=== PATIENT | female | born 2000 ===

== ENCOUNTER 2023-03-22 12:35 | Emergency (ER) | payer OTHER, SELFPAY ==
[2023-03-22 12:40] VITALS: BP 132/93; PULSE 125; RESP 16; TEMP 37.1; O2SAT 99
[2023-03-22 13:50] LABS: Appearance Urine Clear (Clear); Bacteria Urine None Seen /hpf; Bilirubin Urine Negative (Negative); Blood Urine 3+ (Negative); Color Urine Yellow (Yellow); Glucose Urine UA Negative (Negative); Ketones Urine Negative (Negative); Leukocyte Esterase Ur 3+ LEU/UL (Negative); Nitrate Urine Negative (Negative); Non Pathogenic Casts 0-2; Protein Urine Trace mg/dL (Negative); Specific Grav Ur 1.008 (1.001-1.035); Squamous Epithelial Cell Urine Occasional /hpf (Few); WBC Urine 21-50 /hpf
[2023-03-22 13:56] LABS: Influenza A QL RT-PCR Negative (Negative); Influenza B QL RT-PCR Negative (Negative); RSV RNA, RT-PCR Negative (Negative); SARS-CoV-2 RNA PCR Negative (Negative)
[2023-03-22 13:58] LABS: Add Urine Microscopic? YES; Pregnancy On Board Control Positive; Urine Pregnancy Test Negative
[2023-03-22] MEDS: KETOROLAC 30 MG/ML VIAL (*BKC) IM (14:28)
--- NOTE | 2023-03-22 14:29 | ED.FEMALEGU ---
HPI - Female Genitourinary General Chief complaint: Urogenital-Female Stated complaint: Headache/UTI Time Seen by Provider: 03/22/23 12:42 History of Present Illness HPI Narrative: 22-year-old female presented to ED for evaluation of intermittent tension headache. Patient states headache has been ongoing for the last few days. Patient did take ibuprofen for pain control along with Tylenol with some control. Patient is also currently on antibiotics for urinary tract infection and will be on Macrobid until Thursday. Patient denies any current urinary symptoms. Related Data Allergies Allergy/AdvReac Type Severity Reaction Status Date / Time amoxicillin Allergy Mild hives Verified 02/10/23 08:54 Review of Systems Review of Systems: All systems reviewed & are unremarkable except as noted in HPI and below PMFSH Family History Family History Other Diabetes mellitus Hypertension Social History Social History (Updated 02/10/23 @ 08:56 by Varsha Nguyen MA) Smoking status: Never smoker Alcohol intake: current Substance use: never Substance use type: does not use Lack of Transportation: No Lack of Food: Never True Current Housing: I Have Housing Concerned About Future Housing: No Difficulty Paying Gas/Electric Bills: No Difficulty Paying for Meds: No Currently Unemployed: No Education: Master's Degree or Higher Difficulty w/ Childcare or Family Care: No Living arrangements: with family Occupation/Education: occupation 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 HEAD: normocephalic, atraumatic. EYES: PERRLA/EOMI, conjunctivae clear. NOSE: Normal no drainage NECK: Supple. No adenopathy, no masses. RESPIRATORY: Airway patent, respirations nonlabored. Clear to auscultation bilaterally, no rales, rhonchi, wheezing. CARDIOVASCULAR: Regular rate and rhythm without murmurs rubs or gallops. ABDOMINAL: Soft, nontender, nondistended, normal bowel sounds MUSCULOSKELETAL: Moves all extremities. Strength/ROM intact, No edema, No calf tenderness. NEURO: Alert. Cranial nerves II through XII intact. Course Course Emergency Course: 22-year-old female presented the ED for evaluation of headache. Patient was treated with IM Toradol and does feel improved. Patient denies any urinary symptoms currently on Macrobid. Patient did have leuk esterase RBCs and white blood cells but is still on the antibiotics, urine culture is pending. On reevaluation patient does feel improved. Patient was comfortable with plan for discharge and close follow-up. All questions concerns were addressed. Vital Signs Vital signs: Vital Signs Temperature 98.8 F 03/22/23 12:40 Pulse Rate 125 H 03/22/23 12:40 Respiratory Rate 16 03/22/23 12:40 Blood Pressure 132/93 H 03/22/23 12:40 Pulse Oximetry 99 03/22/23 12:40 Oxygen Delivery Room Air 03/22/23 12:40 Temperature 98.8 F 03/22/23 12:40 Pulse Rate 98 03/22/23 15:38 Respiratory Rate 18 03/22/23 15:38 Blood Pressure 136/88 03/22/23 15:38 Pulse Oximetry 98 03/22/23 15:38 Oxygen Delivery Room Air 03/22/23 12:40 MDM - Female Genitourinary Differential Diagnosis Differential diagnosis: Likely urinary tract infection Lab Data Attestation: I reviewed the patient's lab results. Labs: Lab Results 03/22/23 03/22/23 Range/Units 13:03 13:37 Urine Color Yellow (Yellow) Urine Appearance Clear (Clear) Urine pH 7.0 (5.0-9.0) Ur Specific [place] 1.008 (1.001-1.035) Urine Protein Trace (Negative) mg/dL Urine Glucose (UA) Negative (Negative) mg/dL Urine Ketones Negative (Negative) mg/dL Ur Blood (Man) 3+ H (Negative)
[2023-03-22 15:38] VITALS: BP 136/88; PULSE 98; RESP 18; O2SAT 98
== END 2023-03-22 15:40 | disposition home or self-care (01) ==
PROVIDERS: Emergency Provider Emergency Medicine
DX: N39.0 Urinary tract infection, site not specified (principal); R51.9 Headache, unspecified; Z20.822 Contact with and (suspected) exposure to COVID-19
CPT/HCPCS: 81001; 81025; 87086; 87088; 87637; 96372; 99283; J1885

== ENCOUNTER 2023-03-23 17:44 | Emergency (ER) | payer OTHER, SELFPAY ==
--- NOTE | ~2023-03-23 | CT_ITS ---
EXAMINATION: CT brain wo con DATE: 03/23/2023 22:11 INDICATION: acute headache . TECHNIQUE: Computed tomography (CT) of the head was performed without intravenous contrast. The mA wa s adjusted according to patient size. Iterative reconstruction technique was employed. The dose-lengt h product was 605.33 mGy-cm. COMPARISON: None. FINDINGS: No acute intracranial hemorrhage or extra-axial fluid collection. No hydrocephalus, mass, or herniation. No acute ischemic infarct. Unremarkable dural venous sinus attenuation. No acute osseous abnormality. Frontal scalp sebaceous cyst. The aerated spaces are clear. IMPRESSION: No acute intracranial process. Reviewed, dictated and finalized at location K.
[2023-03-23 17:54] VITALS: BP 119/76; PULSE 122; RESP 20; TEMP 37.1; O2SAT 98
[2023-03-23] MEDS: SODIUM CHLORIDE 0.9% IV 1,000 ML 999 ML IV CONT ×2 (20:01→20:55)
[2023-03-23] MEDS: KETOROLAC 15 MG/ML VIAL (*BKC) IV PUSH ×2 (20:02→22:34)
[2023-03-23 20:04] LABS: Lactic Acid Reflex 1.2 mmol/L (0.7-2.0)
[2023-03-23 20:11] LABS: Alanine Aminotransferase 175 U/L (6-35); Albumin Level 3.6 g/dL (3.5-5.1); Alkaline Phosphatase 90 U/L (38-126); Anion Gap 1 mmol/L (8-16); Aspartate Amino Transferase 210 U/L (14-36); Bilirubin,Total 1.2 mg/dL (0.2-1.3); Blood Urea Nitrogen 10 mg/dL (7-17); Calcium 8.4 mg/dL (8.4-10.2); Carbon Dioxide 27 mmol/L (22-30); Chloride 102 mmol/L (98-107); Estimated CRCL calculation 113 ml/min; Estimated Glomerular Filt Rate > 60; Glucose 105 mg/dL (65-110); Lipase 77 U/L (23-300); Potassium 4.1 mmol/L (3.4-5.0); Sodium 130 mmol/L (137-145)
[2023-03-23] MEDS: PROCHLORPERAZINE EDISYLATE 10 MG/2 ML VIAL IV PUSH (20:23)
--- NOTE | 2023-03-23 20:27 | ED.GENADULT ---
HPI - General Adult General Chief complaint: Headache Stated complaint: headaches/nausea Time Seen by Provider: 03/23/23 19:01 Source: patient, RN notes reviewed and old records reviewed Mode of arrival: ambulatory Limitations: no limitations History of Present Illness HPI narrative: This is a 22 year old female who presents for evaluation of headache. Patient states she has had intermittent headache for 8 days. She describes headache as dull frontal with occasional throbbing. She is intermittently taking Tylenol for her pain. She reports nausea but no vomiting. She states she had fever on but this was after headache started and she has not had fever since Thursday. She also reports intermittent abdominal pain. She is currently on antibiotics for a UTI. She states she went to urgent care for assessment of her headache and she was started on medication for UTI. She denies having dysuria, gross hematuria or urinary hesitancy. She did note her urine looked like apple juice at that time but it has since resolved. She reports headache is 7/10 currently. She has not taken any medication today for her symptoms. She was evaluated in ER yesterday and treated for headache. Headache improved but they have returned to ER because she is still getting headaches. She denies focal weakness, blurred vision Related Data Allergies Allergy/AdvReac Type Severity Reaction Status Date / Time amoxicillin Allergy Mild hives Verified 02/10/23 08:54 gentamicin Allergy Unknown Verified 03/23/23 20:33 Review of Systems Constitutional: Constitutional: Denies weakness Eyes: Eyes: Denies change in vision and Denies photophobia Cardiovascular: Cardiovascular: Denies syncope, Denies rapid heart rate, Denies irregular heart rhythm, Denies leg edema and Denies dyspnea Respiratory: Respiratory: Denies chest congestion, Denies hemoptysis, Denies excessive phlegm production and Denies dyspnea Gastrointestinal: Gastrointestinal: Denies abdominal pain, Denies hematochezia, Denies diarrhea, Reports nausea and Denies vomiting Genitourinary: Genitourinary: Denies hematuria, Denies nocturia and Denies dysuria Musculoskeletal: Musculoskeletal: Denies joint swelling, Denies loss of height and Denies muscle weakness Neurologic: Denies syncope, Reports headache(s), Denies focal weakness and Denies weakness [facility] Family History Family History Other Diabetes mellitus Hypertension Social History Social History (Updated 02/10/23 @ 08:56 by Varsha Nguyen MA) Smoking status: Never smoker Alcohol intake: current Substance use: never Substance use type: does not use Lack of Transportation: No Lack of Food: Never True Current Housing: I Have Housing Concerned About Future Housing: No Difficulty Paying Gas/Electric Bills: No Difficulty Paying for Meds: No Currently Unemployed: No Education: Master's Degree or Higher Difficulty w/ Childcare or Family Care: No Living arrangements: with family Occupation/Education: occupation 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 Gender identity (if verbalized by the patient): Female Sexual Orientation (if Verbalized by the Patient): Straight or Heterosexual Exam Const: General: no acute distress and alert Nutritional Appearance: well nourished Orientation/consciousness: patient oriented x3 HENMT: Head: normal to inspection Ears: external ears normal and TM's normal bilaterally Face/Nose/Sinus: Normal external nose present Face and sinus: normal facial exam and sinuses nontender Mouth: Yes Normal oral and palatal mucosa present, Yes lip normal and Yes moist mucous membranes Throat: posterior oropharynx normal and uvula midline Eyes: Conjunctivae: conjunctivae normal Pupils: Equal, round and reactive pupils present EOM: EOMs intact bilaterally Neck: Neck: normal visual inspection and no lymphadenopathy Chest:
[2023-03-23 20:31] LABS: Influenza A QL RT-PCR Negative (Negative); Influenza B QL RT-PCR Negative (Negative); SARS-CoV-2 RNA PCR Negative (Negative)
[2023-03-23 20:39] LABS: Hemoglobin 10.9 g/dL (12.0-15.0); Mean Corpuscular Hemoglobin 28.2 pg (26-34); Mean Corpuscular Volume 85.3 fl (80-100); Mean Platelet Volume 8.3 fl (7.4-10.4); Platelet Count Result 181 k/mm3 (150-375); Red Blood Count 3.87 M/mm3 (4.2-5.4); Red Cell Distribution Width 16.4 % (11.5-14.5); White Blood Count 10.3 K/mm3 (4.5-10.0)
[2023-03-23 20:48] LABS: INR 1.1; Prothrombin Time 14.5 Seconds (11.1-14.7)
[2023-03-23 20:49] LABS: Partial Thromboplastin Time 30.7 SECONDS (22.3-36.8)
[2023-03-23 21:07] LABS: Anisocytosis 2+ (NORMAL); Band Neutrophils Percent 8 % (0-6); Lymphocytes Absolute Manual 3.39 K/mm3 (1.1-4.5); Monocytes Absolute Manual 1.13 K/mm3 (0.1-0.90); Monocytes Percent Manual 11 % (3-9); Neutrophils Absolute Manual 5.76 K/mm3 (1.7-7.2); Neutrophils Percent Manual 48 % (46-73); Platelet Estimate Adequate (Adequate); Schistocytes None Seen (NORMAL); Total Cells Counted 100
[2023-03-23 21:25] LABS: Hepatitis B Surface Antigen Negative (Negative)
[2023-03-23 21:31] LABS: HAV RESULT Negative (Negative); Hepatitis B Core IgM Result Negative (Negative)
[2023-03-23 21:43] LABS: Hepatitis C Virus Antibody Negative (Negative)
[2023-03-23 21:57] VITALS: BP 128/75; PULSE 98; RESP 14; O2SAT 99
[2023-03-23] MEDS: diphenhydrAMINE HCl INJ 50 MG/ML VIAL 25 MG IV PUSH (22:34)
[2023-03-23 23:25] VITALS: PULSE 97; RESP 16; O2SAT 99
== END 2023-03-23 23:29 | disposition home or self-care (01) ==
PROVIDERS: Emergency Provider General Practice
DX: R51.9 Headache, unspecified (principal); E87.1 Hypo-osmolality and hyponatremia; E86.0 Dehydration; R74.01 Elevation of levels of liver transaminase levels; Z20.822 Contact with and (suspected) exposure to COVID-19; R10.9 Unspecified abdominal pain; N39.0 Urinary tract infection, site not specified
CPT/HCPCS: 36415; 70450; 80053; 80074; 81025; 83605; 83690; 85025; 85610; 85730; 87636; 96361; 96374; 96375; 96376; 99284; J0780; J1200; J1885; J7030